=== PATIENT | female | born 1945 | race Caucasian/White ===

== ENCOUNTER 2016-09-01 08:46 | Day surgery (SDC) | payer OTHER, MEDICAID ==
[2016-09-01] MEDS ORDERED: NS 500 ML IV 500 ML IV ONE (09:11)
[2016-09-01] MEDS: TETRACAINE 0.5% OPHTH 1 DOSE AFFEYE ONE ×2 (09:20→11:37)
[2016-09-01] MEDS: VIGAMOX 0.5% OPHTH 1 DOSE AFFEYE ONE ×5 (09:21→12:07)
[2016-09-01] MEDS: NS 1/2 1000 ML IV 500 ML IV ONE (09:30)
[2016-09-01] MEDS: PROLENSA OPHTH 1 DOSE AFFEYE ONE (09:32)
[2016-09-01] MEDS: AK-DILATE 2.5% OPHTH 1 DOSE OP ONE ×5 (09:33→09:35)
[2016-09-01] MEDS: MYDRIACIL OPHTH 1 DOSE AFFEYE ONE ×4 (09:33→09:35)
[2016-09-01] MEDS: ALPHAGAN-P OPHTH 1 DOSE AFFEYE ONE (09:33)
[2016-09-01] MEDS: CYCLOGYL 1% OPHTH 1 DOSE OP ONE ×4 (09:34→09:35)
[2016-09-01] MEDS ORDERED: VERSED ONE (10:05)
[2016-09-01] MEDS ORDERED: DIPRIVAN VIAL ONE (10:05)
[2016-09-01] MEDS: BETADINE OPHTH SOLN 5% EACHEYE ONE (11:37)
[2016-09-01] MEDS: ADRENALINE CHL INJ IJ ONE (11:53)
[2016-09-01] MEDS: XYLOCAINE-MPF 1% IJ ONE (11:53)
[2016-09-01] MEDS: DUOVISC IO ONE (11:53)
[2016-09-01] MEDS: BSS OPHTH (PLAIN) 500 ML with VANCOMYCIN HCL 500 MG VIAL 25 MG, ADRENALINE CHL INJ 1 MG IR ONE ×3 (11:53)
[2016-09-01 12:42] VITALS: BP 155/78
== END 2016-09-01 12:30 | disposition home or self-care (01) ==
LOC: SURG1 08:46
PROVIDERS: ATTEND Ophthalmology
PROC: 08DK3ZZ Extraction of Left Lens, Percutaneous Approach (ICD-10-PCS; principal; 2016-09-01 15:30)
PROC: 08RK3JZ Replacement of Left Lens with Synthetic Substitute, Percutaneous Approach (ICD-10-PCS; principal; 2016-09-01 15:30)
DX: H25.12 Age-related nuclear cataract, left eye (principal); H25.012 Cortical age-related cataract, left eye
CPT/HCPCS: 99100; A4217; J0170; J2250; J3370; J3490

== ENCOUNTER 2016-09-15 08:45 | Day surgery (SDC) | payer OTHER, MEDICAID ==
[2016-09-15] MEDS ORDERED: NS 500 ML IV 500 ML IV ONE (08:56)
[2016-09-15] MEDS ORDERED: TETRACAINE 0.5% OPHTH 1 DOSE AFFEYE ONE ×4 (09:00→11:57)
[2016-09-15] MEDS ORDERED: VIGAMOX 0.5% OPHTH 1 DOSE AFFEYE ONE ×6 (09:01→12:18)
[2016-09-15] MEDS ORDERED: PROLENSA OPHTH 1 DOSE AFFEYE ONE (09:12)
[2016-09-15] MEDS ORDERED: ALPHAGAN-P OPHTH 1 DOSE AFFEYE ONE (09:13)
[2016-09-15] MEDS ORDERED: AK-DILATE 2.5% OPHTH 1 DOSE OP ONE ×4 (09:14→09:17)
[2016-09-15] MEDS ORDERED: MYDRIACIL OPHTH 1 DOSE AFFEYE ONE ×5 (09:14→09:17)
[2016-09-15] MEDS ORDERED: CYCLOGYL 1% OPHTH 1 DOSE OP ONE ×4 (09:14→09:17)
[2016-09-15] MEDS ORDERED: BETADINE OPHTH SOLN 5% EACHEYE ONE (11:50)
[2016-09-15] MEDS ORDERED: DUOVISC IO ONE ×2 (11:51→11:57)
[2016-09-15] MEDS ORDERED: XYLOCAINE-MPF 1% IJ ONE ×2 (11:51→11:57)
[2016-09-15] MEDS ORDERED: ADRENALINE CHL INJ IJ ONE ×2 (11:51→11:57)
[2016-09-15] MEDS ORDERED: BSS OPHTH (PLAIN) 500 ML with VANCOMYCIN HCL 500 MG VIAL 25 MG, ADRENALINE CHL INJ 1 MG IR ONE ×6 (11:52)
[2016-09-15 13:41] VITALS: BP 154/68
[2016-09-15] MEDS ORDERED: VERSED ONE (14:19)
== END 2016-09-15 12:45 | disposition home or self-care (01) ==
LOC: SURG1 08:45
PROVIDERS: ATTEND Ophthalmology
PROC: 08RJ3JZ Replacement of Right Lens with Synthetic Substitute, Percutaneous Approach (ICD-10-PCS; principal; 2016-09-15 13:00)
PROC: 08DJ3ZZ Extraction of Right Lens, Percutaneous Approach (ICD-10-PCS; principal; 2016-09-15 13:00)
DX: H25.11 Age-related nuclear cataract, right eye (principal); H25.011 Cortical age-related cataract, right eye
CPT/HCPCS: 99100; A4217; J0170; J2250; J3370